=== PATIENT | male | born 1985 | race Two or more races ===

== ENCOUNTER 2022-07-18 20:09 | Emergency (ER) | payer BC, MEDICAID ==
[~2022-07-18] VITALS: Ht 167.6 cm; Wt 150.0 kg
[2022-07-18] MEDS ORDERED: KETOROLAC TROMETH 60MG/2ML VIAL IM ONE (22:15)
[2022-07-18] MEDS ORDERED: NAP500T PO (22:15)
[2022-07-18 22:36] VITALS: BP 128/79
== END 2022-07-18 22:50 | disposition home or self-care (01) ==
LOC: ER 20:16
DX: B02.21 Postherpetic geniculate ganglionitis (principal)
CPT/HCPCS: 96372; 99283; J1885

== ENCOUNTER 2023-06-24 17:25 | Emergency (ER) | payer BC, MEDICAID ==
[~2023-06-24] VITALS: Ht 165.1 cm; Wt 74.3 kg
[~2023-06-24 17:25] MED LIST: NAP500T PO
[2023-06-24 18:32] VITALS: BP 132/84; PULSE 64; RESP 16; TEMP 98.1; O2SAT 94
[2023-06-24] MEDS ORDERED: METH-1181 PO (18:55)
[2023-06-24] MEDS ORDERED: IBUP-1455 PO (18:55)
[2023-06-24] MEDS ORDERED: DexAMETHasone SOD PHOS 10MG/1ML VIAL INJ IM ONE (19:00)
[2023-06-24] MEDS ORDERED: HYDROcodone-ACET 5/325MG TAB PO ONE (19:00)
[2023-06-24] MEDS ORDERED: KETOROLAC TROMETH 60MG/2ML VIAL IM ONE (19:00)
== END 2023-06-24 19:34 | disposition home or self-care (01) ==
LOC: ER 17:29
DX: M54.42 Lumbago with sciatica, left side (principal); M54.41 Lumbago with sciatica, right side; Z79.899 Other long term (current) drug therapy
CPT/HCPCS: 72131; 96372; 99285; J1100; J1885

== ENCOUNTER 2024-07-26 18:54 | Emergency (ER) | payer BC, MEDICAID ==
[~2024-07-26] VITALS: Ht 162.6 cm; Wt 74.0 kg
[~2024-07-26 18:54] MED LIST changes: +IBUP-1455 PO; +METH-1181 PO
[2024-07-26 19:00] VITALS: BP 116/88; PULSE 68; RESP 16; O2SAT 97
[2024-07-26] MEDS: DexAMETHasone SOD PHOS 10MG/1ML VIAL INJ IM ONE (20:15)
[2024-07-26] MEDS: KETOROLAC TROMETH 60MG/2ML VIAL IM ONE (20:15)
[2024-07-26] MEDS: SODIUM CHLORIDE 0.9% 1,000 ML IV ONE (21:37)
[2024-07-26] MEDS ORDERED: METH4PAK PO (22:47)
--- NOTE | 2024-07-26 22:47 | ED.PDOC ---
Back pain HPI HPI Comments This is a 39-year-old male presents to the ED chief complaint acute on chronic lower back pain. Patient states symptoms started around 8 hours prior to main triage arrival. States has been taking [id number] pain relievers without relief. He states history of sciatica pain on the right side. Also notes last time he had an acute attack was around 1 year ago. He reports no known aggravating injury. He describes pain as sharp shooting to right lower back with radiation into buttocks down posterior leg rapid around his right knee into his oneill. Rates pain 10/10 on pain scale. He denies any no known injury. Saddle anesthesia, loss of bowel or bladder control, fever or chills. Chief Complaint: Back Pain Time Seen by MD: 19:18 Primary Care Provider: ERIN Reviewed Notes: Nurses Notes, Medications, Allergies Allergies: Coded Allergies: NO KNOWN ALLERGIES (Unverified , 07/18/22) Home Meds Active Scripts Methylprednisolone (Medrol Dosepak) 4 Mg Ruddy, 4 MG PO UD for 6 Days, #21 TAB UAD Prov:ANIA DENT PHOTO ENGRAVER 07/26/24 Ibuprofen Micronized (Ibuprofen) 800 Mg Tab, 800 MG PO TID PRN for 30 Days, #90 TAB Prov:ALEIDA DYE PHOTO ENGRAVER 06/24/23 Methocarbamol (Methocarbamol) 500 Mg Tab, 500 MG PO BID PRN for 14 Days, #28 TAB Prov:ALEIDA DYE PHOTO ENGRAVER 06/24/23 Naproxen (NAPROSYN TABLET) 500 Mg Tb, 1 TAB PO BID PRN, #30 TAB 0 Refills Prov:NING MCDERMOTT 07/18/22 Information Source: Patient Mode of Arrival: Ambulatory Past Medical History PAST MEDICAL HISTORY: Denies Past Medical History (Other): Chronic lower back pain Surgical History: Unknown Family History Family History: Reviewed,noncontributory to illness, No family hx of Cancer, No family hx of DM, No family hx of Heart parmjit, No family hx of HTN, No family hx ofKidney parmjit, No family hx of Liver parmjit, No family hx of Lung parmjit, No family hx of Stroke Social History Smoker: Non-Smoker Alcohol: Denies ETOH Use Drugs: Denies Drug Use Lives In: Home Constitutional: denies: chills, diaphoresis, fatigue, fever, malaise, sweats, weakness, others EENTM: denies: blurred vision, double vision, ear bleeding, ear discharge, ear drainage, ear pain, ear ringing, eye pain, eye redness, hearing loss, mouth pain, mouth swelling, nasal discharge, nose bleeding, nose congestion, nose pain, photophobia, tearing, throat pain, throat swelling, voice changes, others Respiratory: denies: cough, hemoptysis, orthopnea, SOB at rest, shortness of breath, SOB with excertion, stridor, wheezing, others Cardiovascular: denies: chest pain, dizzy spells, diaphoresis, Dyspnea on exertion, edema, irregular heart beat, left arm pain, lightheadedness, palpitations, PND, syncope, others Gastrointestinal: denies: abdomen distended, abdominal pain, blood streaked bowels, constipated, diarrhea, dysphagia, difficulty swallowing, hematemesis, melena, nausea, poor appetite, poor fluid intake, rectal bleeding, rectal pain, vomiting, others Genitourinary: denies: burning, dysuria, flank pain, frequency, hematuria, incontinence, penile discharge, penile sore, pain, testicle pain, testicle swelling, urgency, others Neurological: denies: dizziness, fainting, headache, left sided numbness, left sided weakness, numbness, paresthesia, pre-existing deficit, right sided numbness, right sided weakness, seizure, speech problems, tingling, tremors, weakness, others Musculoskeletal: reports: back pain; denies: gout, joint pain, joint swelling, muscle pain, muscle stiffness, neck pain, others Integumetry: denies: bruises, change in color, change in hair/nails, dryness, laceration, lesions, lumps, rash, wounds, others Allergic/Immunocompromised: denies: Difficulty Healing, Frequent Infections, Hives, Itching, others Hematologic/Lymphatic: denies: anemia, blood clots, easy bleeding, easy bruising, swollen glands, others Endocrine: denies: excessive hunger, excessive sweating, excessive thirst, excessive urination, flushing, intolerance to cold, intolerance to heat, une xplained weight gain, unexplained weight loss, others Psychiatric: denies: anxiety, bipolar disorder, depression, hopeless, panic disorder, schizophrenia, sleepless, suicidal, others Physical Exam General Appearance: No Apparent Distress, Normal HEENT: Pharynx Normal Neck: Full Range of Motion, Non-Tender Respiratory: Lungs Clear, No Respiratory Distress, Normal Breath Sounds Cardiovascular: No Murmur, Normal Peripheral Pulses, Regular Rate/Rhythm Breast Exam: Deferred Gastrointestinal: Non Tender, Soft Genitalia: Deferred Pelvic: Deferred Rectal: Deferred Extremities: Normal range of motion Musculoskeletal : Location: Right Extremity Location: Back (Moderate tenderness palpated over L4-L5 lumbar spine, without crepitus or step-offs. Positive straight raise left side. Strength sensory and motion intact pedal pulses intact.) Apperance: Normal Neurologic: Alert, auto leasing manager II-XII nml as Tested, No Motor Deficits, Normal Affect, Normal Mood, No Sensory Deficits Cerebellar Function: Normal Reflexes: Normal Skin: Dry, Normal Color, Warm Lymphatic: No Adenopathy Was a procedure done? Was a procedure done?: No Back Pain Differential Dx Differential Diagnosis: Musculoskeletal Pain X-Ray, Labs, Meds, VS Vital Signs Date Time Temp Pulse Resp B/P (MAP) Pulse Ox O2 Delivery O2 Flow Rate FiO2 07/26/24 21:39 Room Air 07/26/24 19:00 97.7 68 16 116/88 (97) 97 07/26/24 19:00 68 16 116/88 (97) 97 Current Medications Medications (Trade) Dose Ordered Sig/Flaco Route Start Time Stop Time Status Last Admin Ketorolac Tromethamine (Toradol Injection) 60 mg ONCE ONCE IM 07/26/24 20:15 07/26/24 20:16 DC 07/26/24 20:15 Dexamethasone Sodium Phosphate (Decadron Injection) 10 mg ONCE ONCE IM 07/26/24 20:15 07/26/24 20:16 DC 07/26/24 20:15 Sodium Chloride 1,000 ml @ 1,000 mls/hr Q1H ONCE IV 07/26/24 21:30 07/26/24 22:29 DC 07/26/24 21:37 X-Ray, Labs, Meds, VS Comment Medications: Patient given Toradol 60 mg IM Patient given Decadron 10 mg IM During patient's stay in [facility] after receiving the Toradol injection patient vasovagal. Patient became hypotensive and bradycardic blood pressure 80/66 heart rate of 49. Patient was placed in Trendelenburg position IV started 1 L fluid bolus was given with good results. Repeat blood pressure was 142/88 with a heart rate of 76 patient remained alert and oriented throughout event. Patient states improvement in his pain and function a lot better prior to his arrival in his requesting discharge at this time. We will script Medrol Dosepak x6 days. Advised to follow up with his PCP within 2-3 days consider referral for pain management and MRI. This is likely L4-L5 dermatome radiculopathy. Advised to return to the ER for increasing pain, numbness, weakness, saddle anesthesia, loss of bowel or bladder control, high fevers or any concerning symptoms. Patient agrees with discharge plan of care. Time of 1ST Reevaluation: 22:40 Reevaluation 1ST: Improved Patient Education/Counseling: Diagnosis, Treatment, Prognosis, Need For Follow Up Family Education/Counseling: Diagnosis, Treatment, Prognosis, Need For Follow Up Departure 1 Departure Time of Disposition: 22:45 Impression: Primary Impression: Lumbar radiculopathy Disposition: 01 HOME / SELF CARE / HOMELESS Condition: Stable e-Prescriptions Methylprednisolone (Medrol Dosepak) 4 Mg Ruddy 4 MG PO UD for 6 Days, #21 TAB UAD Prov: ANIA DENT 07/26/24 Discharged With: Spouse Critical Care Note Critical Care Time?: No Stability Stability form required: No ANIA DENT Jul 26, 2024 22:47
== END 2024-07-26 23:06 | disposition home or self-care (01) ==
LOC: ER 19:06
DX: M54.16 Radiculopathy, lumbar region (principal); Z79.899 Other long term (current) drug therapy
CPT/HCPCS: 96360; 96372; 99284; J1100; J1885; J7030

== ENCOUNTER 2024-08-14 18:19 | Emergency (ER) | payer BC, MEDICAID ==
[~2024-08-14] VITALS: Ht 165.1 cm; Wt 73.0 kg
[~2024-08-14 18:19] MED LIST changes: +METH4PAK PO
--- NOTE | 2024-08-14 18:39 | ECG ---
[facility] Test Date: 2024-08-14 Test Time: 18:23:20 Pat Name: NIKOLAY SHAY Department: ER Room: Gender: M Telephone Sterilizer: : 1985 Requested By: LISSA WINSTON Order Number: [id number] Reading MD: Antony Ibrahim Measurements Intervals [place] Rate: 89 P: 9 AK: 131 QRS: 49 QRSD: 87 T: 44 QT: 336 QTc: 409 Interpretive Statements Sinus rhythm Baseline wander in lead(s) V1 Electronically Signed On 08-15-2024 14:17:57 PST by Antony Ibrahim Please click the below link to view image of tracing.
--- NOTE | 2024-08-14 19:07 | DVH ---
EXAMINATION: Chest x-ray 1 view CLINICAL HISTORY: Chest pain COMPARISON: None FINDINGS: No dominant consolidation. No sizable pleural effusion or pneumothorax. The cardiomediastinal silhoue tte appears within normal limits given technique. IMPRESSION: No acute cardiopulmonary findings as visualized.
[2024-08-14 19:10] LABS: Alanine Aminotransferase 36 U/L (7-40); Albumin 4.7 g/dL (3.2-4.8); Alkaline Phosphatase 124 U/L (46-116); Anion Gap 9 (5-15); Aspartate Aminotransferase 20 U/L (13-40); BUN/Creatinine Ratio 14.4 (10.0-20.0); Blood Urea Nitrogen 14 mg/dL (9-23); Calcium 10.4 mg/dL (8.7-10.4); Carbon Dioxide 26 mmol/L (20-31); Chloride 107 mmol/L (98-107); Glucose 114 mg/dL (74-106); Potassium 3.9 mmol/L (3.5-5.1); Sodium 142 mmol/L (136-145)
[2024-08-14 19:11] LABS: Bilirubin, Total 0.4 mg/dL (0.2-1.0)
[2024-08-14 19:23] LABS: Basophils # (auto) 0 10 ^3/uL (0-0.2); Basophils % (auto) 0.5 % (0.0-2.0); Eosinophils # (auto) 0.1 10 ^3/uL (0-0.8); Eosinophils % (auto) 1.1 % (0.0-7.0); Hematocrit 46.6 % (41.0-53.0); Hemoglobin 15.7 g/dL (13.5-17.5); Lymphocytes # (auto) 3.8 10 ^3/uL (0.4-5.4); Lymphocytes % (auto) 49.8 % (10.0-50.0); Mean Corpuscular Hemoglobin 31.9 pg (28.0-32.0); Mean Corpuscular Hgb Conc. 33.7 g/dL (32.0-36.0); Mean Corpuscular Volume 94.6 fL (80.0-100.0); Monocytes # (auto) 0.5 10 ^3/uL (0-1.3); Monocytes % (auto) 7.1 % (0.0-12.0); Neutrophils # (auto) 3.2 10 ^3/uL (1.6-8.6); Neutrophils % (auto) 41.5 % (37.0-80.0); Nucleated Red Blood Cells % 0.2 %; Platelet Count (auto) 322 10^3/uL (140-450); Red Blood Cells 4.92 10^6/uL (4.5-5.90); Red Cell Distribution Width 13.2 % (11.8-14.3); White Blood Cell 7.7 10^3/uL (4.4-10.8)
--- NOTE | 2024-08-14 19:25 | ECG ---
[facility] Test Date: 2024-08-14 Test Time: 19:24:07 Pat Name: NIKOLAY SHAY Department: ED Room: Gender: M Etymology Professor: : 1985 Requested By: LISSA WINSTON Order Number: [id number] Reading MD: Antony Ibrahim Measurements Intervals [place] Rate: 70 P: 25 CA: 140 QRS: 51 QRSD: 89 T: 29 QT: 395 QTc: 427 Interpretive Statements Sinus rhythm Electronically Signed On 08-15-2024 14:18:01 PST by Antony Ibrahim Please click the below link to view image of tracing.
--- NOTE | 2024-08-14 20:52 | ED.PDOC ---
HPI Comments 39-year-old male complaining of 10/10 sharp chest pain on the left side radiating down left arm. Has intermittent bilateral upper are extremity numbness. No prior cardiac history. Patient states he has been stress. They end of out of his brother who less than a year ago. Chief Complaint: Chest Pain Time Seen by MD: 18:26 Primary Care Provider: NONE Reviewed Notes: Nurses Notes Allergies: Coded Allergies: NO KNOWN ALLERGIES (Unverified , 07/18/22) Home Meds Active Scripts Methylprednisolone (Medrol Dosepak) 4 Mg Ruddy, 4 MG PO UD for 6 Days, #21 TAB UAD Prov:JAILENEANIA ASPHALT WORKER 07/26/24 Ibuprofen Micronized (Ibuprofen) 800 Mg Tab, 800 MG PO TID PRN for 30 Days, #90 TAB Prov:ALEIDA DYE ASPHALT WORKER 06/24/23 Methocarbamol (Methocarbamol) 500 Mg Tab, 500 MG PO BID PRN for 14 Days, #28 TAB Prov:ALEIDA DYE ASPHALT WORKER 06/24/23 Naproxen (NAPROSYN TABLET) 500 Mg Tb, 1 TAB PO BID PRN, #30 TAB 0 Refills Prov:NING MCDERMOTT 07/18/22 Information Source: Patient Mode of Arrival: Ambulatory Past Medical History PAST MEDICAL HISTORY: Denies Surgical History: Unknown Family History Family History: Reviewed,noncontributory to illness, No family hx of Cancer, No family hx of DM, No family hx of Heart parmjit, No family hx of HTN, No family hx ofKidney parmjit, No family hx of Liver parmjit, No family hx of Lung parmjit, No family hx of Stroke Social History Smoker: Non-Smoker Alcohol: Denies ETOH Use Drugs: Denies Drug Use Lives In: Home Constitutional: denies: chills, diaphoresis, fatigue, fever, malaise, sweats, weakness, others EENTM: denies: blurred vision, double vision, ear bleeding, ear discharge, ear drainage, ear pain, ear ringing, eye pain, eye redness, hearing loss, mouth pain, mouth swelling, nasal discharge, nose bleeding, nose congestion, nose pain, photophobia, tearing, throat pain, throat swelling, voice changes, others Respiratory: denies: cough, hemoptysis, orthopnea, SOB at rest, shortness of breath, SOB with excertion, stridor, wheezing, others Cardiovascular: reports: chest pain; denies: dizzy spells, diaphoresis, Dyspnea on exertion, edema, irregular heart beat, left arm pain, lightheadedness, palpitations, PND, syncope, others Gastrointestinal: denies: abdomen distended, abdominal pain, blood streaked bowels, constipated, diarrhea, dysphagia, difficulty swallowing, hematemesis, melena, nausea, poor appetite, poor fluid intake, rectal bleeding, rectal pain, vomiting, others Genitourinary: denies: burning, dysuria, flank pain, frequency, hematuria, incontinence, penile discharge, penile sore, pain, testicle pain, testicle swel ling, urgency, others Neurological: denies: dizziness, fainting, headache, left sided numbness, left sided weakness, numbness, paresthesia, pre-existing deficit, right sided numbness, right sided weakness, seizure, speech problems, tingling, tremors, weakness, others Musculoskeletal: denies: back pain, gout, joint pain, joint swelling, muscle pain, muscle stiffness, neck pain, others Integumetry: denies: bruises, change in color, change in hair/nails, dryness, laceration, lesions, lumps, rash, wounds, others Allergic/Immunocompromised: denies: Difficulty Healing, Frequent Infections, Hives, Itching, others Hematologic/Lymphatic: denies: anemia, blood clots, easy bleeding, easy bruising, swollen glands, others Endocrine: denies: excessive hunger, excessive sweating, excessive thirst, excessive urination, flushing, intolerance to cold, intolerance to heat, unexplained weight gain, unexplained weight loss, others Psychiatric: reports: anxiety Physical Exam General Appearance: No Apparent Distress, Normal HEENT: Normal ENT Inspection, Pharynx Normal, TMs Normal Neck: Full Range of Motion, Non-Tender, Normal, Normal Inspection Respiratory: Chest Non-Tender, Lungs Clear, No Accessory Muscle Use, No Respiratory Distress, Normal Breath Sounds Cardiovascular: No Edema, No JVD, No Murmur, No Gallop, Normal Peripheral Pulses, Regular Rate/Rhythm, Other (Chest pain reproducible with palpation of the anterior chest wall on left side) Breast Exam: Deferred Gastrointestinal: No Organomegaly, Non Tender, No Pulsatile Mass, Normal Bowel Sounds, Soft Genitalia: Deferred Pelvic: Deferred Rectal: Deferred Extremities: No calf tenderness, Normal capillary refill, Normal inspection, Normal range of motion, Non-tender, No pedal edema Musculoskeletal : Apperance: Normal Neurologic: Alert, communications attendant II-XII nml as Tested, No Motor Deficits, Normal Affect, Normal Mood, No Sensory Deficits Cerebellar Function: Normal Reflexes: Normal Skin: Dry, Normal Color, Warm Lymphatic: No Adenopathy Was a procedure done? Was a procedure done?: No CP Differential Dx Differential Diagnosis: Angina, Anxiety / Panic Attack X-Ray, Labs, Meds, VS Vital Signs Date Time Temp Pulse Resp B/P (MAP) Pulse Ox O2 Delivery O2 Flow Rate FiO2 08/14/24 19:24 70 08/14/24 18:23 89 08/14/24 18:20 99.2 62 24 159/99 (119) 100 Lab Test 08/14/24 19:38 08/14/24 18:35 Range/Units Troponin I High Sensitivity 8 8 </=54 ng/L White Blood Count 7.7 4.4-10.8 10^3/uL Red Blood Count 4.92 4.5-5.90 10^6/uL Hemoglobin 15.7 13.5-17.5 g/dL Hematocrit 46.6 41.0-53.0 % Mean Corpuscular Volume 94.6 80.0-100.0 fL Mean Corpuscular Hemoglobin 31.9 28.0-32.0 pg Mean Corpuscular Hemoglobin Concent 33.7 32.0-36.0 g/dL Red Cell Distribution Width 13.2 11.8-14.3 % Platelet Count 322 140-450 10^3/uL Mean Platelet Volume 7.7 6.9-10.8 fL Neutrophils (%) (Auto) 41.5 37.0-80.0 % Lymphocytes (%) (Auto) 49.8 10.0-50.0 % Monocytes (%) (Auto) 7.1 0.0-12.0 % Eosinophils (%) (Auto) 1.1 0.0-7.0 % Basophils (%) (Auto) 0.5 0.0-2.0 % Neutrophils # (Auto) 3.2 1.6-8.6 10 ^3/uL Lymphocytes # (Auto) 3.8 0.4-5.4 10 ^3/uL Monocytes # (Auto) 0.5 0-1.3 10 ^3/uL Eosinophils # (Auto) 0.1 0-0.8 10 ^3/uL Basophils # (Auto) 0 0-0.2 10 ^3/uL Nucleated Red Blood Cells 0.2 % Sodium Level 142 136-145 mmol/L Potassium Level 3.9 3.5-5.1 mmol/L Chloride Level 107 98-107 mmol/L Carbon Dioxide Level 26 20-31 mmol/L Anion Gap 9 5-15 Blood Urea Nitrogen 14 9-23 mg/dL Creatinine 0.97 0.700-1.30 mg/dL Glomerular Filtration Rate Calc 101 >90 mL/min BUN/Creatinine Ratio 14.4 10.0-20.0 Serum Glucose 114 H 74-106 mg/dL Calcium Level 10.4 8.7-10.4 mg/dL Total Bilirubin 0.4 0.2-1.0 mg/dL Aspartate Amino Transferase (AST) 20 13-40 U/L Alanine Aminotransferase (ALT) 36 7-40 U/L Alkaline Phosphatase 124 H 46-116 U/L Total Protein 7.0 5.7-8.2 g/dL Albumin 4.7 3.2-4.8 g/dL X-Ray, Labs, Meds, VS Comment Imaging: X-rays and CT scans were reviewed and interpreted by this provider, imaging shows no fractures and no pathological disease. Pending radiology review. Laboratory: Labs reviewed and interpreted by this provider. No significant abnormalities noted. Patient has prior medical visits reviewed. Med reconciliation performed Vital signs reviewed Time of 1ST Reevaluation: 20:51 Reevaluation 1ST: Improved Patient Education/Counseling: Diagnosis, Treatment, Need For Follow Up (Patient advised to follow-up in the emergency room in the next 24 to 48 hours if symptoms do not improve. Advised follow-up with PCP in the next 3 to 5 days. Patient verbalized understanding. ) Family Education/Counseling: Diagnosis, Treatment Departure 1 Departure Time of Disposition: 20:51 Impression: Primary Impression: Musculoskeletal chest pain Additional Impression: Anxiety Disposition: 01 HOME / SELF CARE / HOMELESS Condition: Fair Discharged With: Self Critical Care Note Critical Care Time?: No Stability Stability form required: No Heart Score Heart Score: Heart Score Response (Comments) Value History Slightly Suspicious 0 EKG Normal 0 Age <45 0 Risk Factors No known risk factors 0 Troponin Normal limit 0 Total 0 BUSTOS,CHRISTOPHER E ASPHALT WORKER Aug 14, 2024 20:52
[2024-08-14 23:17] VITALS: BP 134/72; PULSE 60; RESP 16; TEMP 97.8; O2SAT 97
== END 2024-08-14 23:18 | disposition home or self-care (01) ==
LOC: ER 18:19
DX: R07.89 Other chest pain (principal); F41.9 Anxiety disorder, unspecified; Z79.899 Other long term (current) drug therapy
CPT/HCPCS: 36415; 71045; 80053; 84484; 85025; 93005